=== PATIENT | male | born 1975 | race American Indian/Alaskan Native ===

== ENCOUNTER 2017-11-06 16:03 | Emergency (ER) | payer OTHER ==
[2017-11-06] MEDS ORDERED: TYLENOL PO ONE (18:27)
[2017-11-06] MEDS ORDERED: TYLENOL ONE (18:28)
--- NOTE | 2017-11-06 19:55 | XRay Report ---
FINAL REPORT PROCEDURE: XR KNEE 4+V RT TECHNIQUE: RIGHT knee radiographs, 4 or more views, including AP, lateral, sunrise, and oblique views. CPT 12597 HISTORY: Blunt trauma to the knee. COMPARISON: No prior studies are available for comparison. FINDINGS: Fracture (s) and/or Dislocation(s): None . Alignment: Normal . Joint space(s): Mild medial compartment narrowing. Patellar enthesophyte. Trace joint effusion. Soft tissues: Normal . Bone mineralization: Normal . Foreign bodies: None . IMPRESSION: Mild degenerative change. Trace joint effusion. No radiographic evidence of displaced fracture.
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
[2017-11-06 21:38] VITALS: BP 118/78
== END 2017-11-06 20:08 | disposition home or self-care (01) ==
LOC: ED 16:03
DX: S80.01XA Contusion of right knee, initial encounter (principal); Z88.6 Allergy status to analgesic agent; V63.5XXA Driver of heavy transport vehicle injured in collision with car, pick-up truck or van in traffic accident, initial encounter; Y93.89 Activity, other specified; Y99.8 Other external cause status; Y92.410 Unspecified street and highway as the place of occurrence of the external cause
CPT/HCPCS: 99283